=== PATIENT | female | born 1970 | race Caucasian/White ===

== ENCOUNTER → 2025-06-30 10:08 | Outpatient (REF) | payer BC, SELFPAY | LOC: RAD 10:08 | PROVIDERS: ATTENDING PHYSICIAN Physician Assistant; REFERRING PHYSICIAN Internal Medicine Transplant Hepatology | DX: R14.0 Abdominal distension (gaseous) (principal); R19.4 Change in bowel habit; K75.81 Nonalcoholic steatohepatitis (NASH) | CPT/HCPCS: 76700 ==